=== PATIENT | male | born 1950 | race Caucasian/White ===

== ENCOUNTER 2017-09-07 08:02 | Day surgery (SDC) | payer MEDICARE, BC ==
[~2017-09-07 08:02] MED LIST: Lactated Ringers 1,000 ML IV SCH
--- NOTE | 2017-09-07 08:39 | PCM.PREANE ---
Preanesthetic Assessment - Anesthesia/Transfusion/Family Hx Anesthesia History: Prior Anesthesia Without Reaction Family History of Anesthesia Reaction: No Transfusion History: No Prior Transfusion(s) Intubation History: Unknown - Review of Systems General: No Symptoms Pulmonary: No Symptoms Cardiovascular: No Symptoms Gastrointestinal: No Symptoms, Other (screening colonoscopy) Neurological: No Symptoms Other: Reports: None - Physical Assessment O2 Sat by Pulse Oximetry: 97 Respiratory Rate: 16 Vital Signs: Last Vital Signs Temp 36.7 C 09/07/17 08:15 Pulse 72 09/07/17 08:15 Resp 16 09/07/17 08:15 BP 136/92 H 09/07/17 08:15 Pulse Ox 97 09/07/17 08:15 Height: 1.78 m Weight: 114.305 kg ASA Class: 2 Mental Status: Alert & Oriented x3 Airway Class: Mallampati = 2 Dentition: Reports: [place](s) (x4 upper front), Bridge (right upper (side)) Thyro-Mental Finger Breadths: 3 Mouth Opening Finger Breadths: 3 ROM/Head Extension: Full Lungs: Clear to Auscultation, Normal Respiratory Effort Cardiovascular: Regular Rate, Regular Rhythm - Allergies Allergies/Adverse Reactions: Allergies Allergy/AdvReac Type Severity Reaction Status Date / Time No Known Allergies Allergy Verified 09/04/17 08:36 - Blood Blood Available: No - Anesthesia Plan Pre-Op Medication Ordered: None - Acknowledgements Anesthesia Type Planned: MAC Pt an Appropriate Candidate for the Planned Anesthesia: Yes Alternatives and Risks of Anesthesia Discussed w Pt/Guardian: Yes Pt/Guardian Understands and Agrees with Anesthesia Plan: Yes PreAnesthesia Questionnaire HEENT History: Reports: Hard of Hearing, Impaired Vision, Other (See Below) Other HEENT History: wears glasses, has derek hearing aids Cardiovascular History: Reports: Heart Murmur, High Cholesterol, Hypertension Gastrointestinal History: Reports: Other (See Below) Other Gastrointestinal History: occasional heartburn Musculoskeletal History: Reports: Arthritis, Fracture Other Musculoskeletal History: orbital fx rt eye Neurological History: Reports: Head Trauma Endocrine/Metabolic History: Reports: Obesity/BMI 30+ - Past Surgical History Head Surgeries/Procedures: Reports: None HEENT Surgical History: Reports: Cataract Surgery, Eye Surgery, Naso-Sinus Surgery, Other (See Below) Other HEENT Surgeries/Procedures: eye surgery due to injury, has prostetic rt eye - SUBSTANCE USE Smoking Status *Q: Never Smoker Recreational Drug Use History: No - HOME MEDS Home Medications: Home Meds Aspirin [Ralls Aspirin] 81 mg PO DAILY 09/04/17 [History] Hydrochlorothiazide 25 mg PO DAILY 09/04/17 [History] Metoprolol Succinate 50 mg PO DAILY 09/04/17 [History] Multivitamin [Multivitamins] 1 tab PO DAILY 09/04/17 [History] [place]-3 Fatty Acids [[place]-3] 1,000 mg PO DAILY 09/04/17 [History] amLODIPine Besylate [Amlodipine Besylate] 5 mg PO DAILY 09/04/17 [History] atorvaSTATin Calcium [Atorvastatin Calcium] 10 mg PO DAILY 09/04/17 [History] - CURRENT (IN HOUSE) MEDS Current Meds: Current Medications Lactated Ringer's (Ringers, Lactated) 1,000 mls @ 125 mls/hr IV ASDIRECTED [facility] Last Admin: 09/07/17 08:19 Dose: 125 mls/hr
[2017-09-07] MEDS ORDERED: Midazolam 1 MG/ML 2 ML SDV ONE (08:48)
[2017-09-07] MEDS ORDERED: Propofol 200 MG/20 ML SDV ONE (08:48)
[2017-09-07] MEDS ORDERED: Lidocaine 2% 5 ML SDV ONE (08:48)
[2017-09-07] MEDS ORDERED: fentaNYL 100 MCG/2 ML SDV ONE (08:49)
--- NOTE | 2017-09-07 09:54 | PCM.OPNOTE ---
- General Post-Op/Procedure Note Date of Surgery/Procedure: 09/07/17 Operative Procedure(s): Colonoscopy Pre Op Diagnosis: Desire for colorectal cancer screening Post-Op Diagnosis: Sigmoid diverticulosis Anesthesia Technique: MAC (ASA II) Primary Surgeon: Agus Pérez Condition: Good Free Text/Narrative:: Dictation [id number] CPT CODE 63866
[2017-09-07] MEDS ORDERED: Lactated Ringers 1,000 ML IV SCH (10:00)
--- NOTE | 2017-09-07 10:32 | PCM48HPAN ---
Post Anesthesia Note - EVALUATION WITHIN 48HRS OF ANESTHETIC Vital Signs in Normal Range: Yes Patient Participated in Evaluation: Yes Respiratory Function Stable: Yes Airway Patent: Yes Cardiovascular Function Stable: Yes Hydration Status Stable: Yes Pain Control Satisfactory: Yes Nausea and Vomiting Control Satisfactory: Yes Mental Status Recovered: Yes Resp Rate: 22 - COMMENTS/OBSERVATIONS Free Text/Narrative:: no anesthesia problems
[2017-09-07 12:28] VITALS: BP 119/68
--- NOTE | 2017-09-11 11:48 | OR ---
SURGEON: Agus Pérez M.D. DATE OF PROCEDURE: 09/07/2017 OPERATION PERFORMED: Colonoscopy. ANESTHESIA: MAC. ASA CLASSIFICATION: II. PREOPERATIVE DIAGNOSIS: Desire for colorectal cancer screening. POSTOPERATIVE DIAGNOSIS: Sigmoid diverticulosis. DESCRIPTION OF PROCEDURE: The patient was taken to the endoscopy room, positioned on the endoscopy table in the left lateral decubitus position. Time-out was called for appropriate identification of the patient and the procedure. Monitored anesthesia care was provided. The colonoscope was inserted into the rectum and advanced with minimal difficulty to the cecum. The colonoscope was retroflexed in the cecum to visualize the ascending colon from below then straightened and slowly withdrawn. The cecum, ascending colon, hepatic flexure, transverse colon, splenic flexure, and descending colon showed no tumors, polyps, diverticula, or angiodysplastic changes. A few diverticula were noted in the sigmoid colon. No stricture, spasm, or bleeding was noted. Once the colonoscope was withdrawn to the rectum, it was retroflexed to visualize the anal orifice from above. No tumors or polyps were seen, and there were no acute hemorrhoidal changes. The colonoscope was then straightened, the rectum aspirated, and the colonoscope removed. The patient tolerated the procedure well and was taken to recovery room in stable condition. AMPARO / BRAYAN /[id number]
== END 2017-09-07 11:15 | disposition home or self-care (01) ==
LOC: MW.SDS 08:02
PROVIDERS: ATTEND Surgery
DX: Z12.11 Encounter for screening for malignant neoplasm of colon (principal); K57.30 Diverticulosis of large intestine without perforation or abscess without bleeding; I10 Essential (primary) hypertension; E78.00 Pure hypercholesterolemia, unspecified; Z79.82 Long term (current) use of aspirin; Z79.899 Other long term (current) drug therapy
CPT/HCPCS: G0121; J2250; J3010; J7120; 00812; J2704

== ENCOUNTER 2019-09-03 09:23 | Observation (INO) | payer MEDICARE, BC ==
[2019-09-03] MEDS ORDERED: Aspirin 81 MG Tab.Chew PO ONE (10:14)
--- NOTE | 2019-09-03 10:17 | EDM.PDOC ---
ED HPI GENERAL MEDICAL PROBLEM - General Chief Complaint: Chest Pain Stated Complaint: CHEST PAIN Time Seen by Provider: 09/03/19 10:08 Source of Information: Reports: Patient History Limitations: Reports: No Limitations - History of Present Illness INITIAL COMMENTS - FREE TEXT/NARRATIVE: HISTORY AND PHYSICAL: History of present illness: Patient is a 69-year-old male who presents to the emergency room today with complaints of left anterior chest pain. He states he noticed on Sunday night he was having sharp stabbing pain to the left mid axillary chest wall. Sunday the pain started to his chest which worsened today. He states he had to take Tylenol last evening as the pain was keeping him awake. He states nothing makes the pain better or worse. States the pain is intermittent, lasting anywhere from a few seconds to a few minutes at a time. Patient denies any fever, chills, headache, change in vision, syncope or near syncope. Denies any back pain, shortness of breath or cough. Denies any abdominal pain, nausea, vomiting, diarrhea, constipation or dysuria. Has not noted any blood in urine or stool. Patient has been eating and drinking appropriately. Patient has a past medical history of heart murmur and hypertension. Review of systems: As per history of present illness and below otherwise all systems reviewed and negative. Past medical history: As per history of present illness and as reviewed below otherwise noncontributory. Surgical history: As per history of present illness and as reviewed below otherwise noncontributory. Social history: See social history for further information Family history: As per history of present illness and as reviewed below otherwise noncontributory. Physical exam: General: Well-developed and well-nourished 69-year-old male. Alert and oriented. Nontoxic-appearing and in no acute distress. HEENT: Atraumatic, normocephalic, pupils equal and reactive bilaterally, negative for conjunctival pallor or scleral icterus, mucous membranes moist, TMs normal bilaterally, throat clear, neck supple, nontender, trachea midline. No drooling or trismus noted. No meningeal signs. No hot potato voice noted. Lungs: Clear to auscultation, breath sounds equal bilaterally, chest nontender. Heart: S1S2, regular rate and rhythm, obvious murmur noted Abdomen: Soft, nondistended, nontender. Negative for masses or hepatosplenomegaly. Negative for costovertebral tenderness. Skin: Intact, warm, dry. No lesions or rashes noted. Extremities: Atraumatic, moves all extremities per self without difficulty or deficits, negative for cords or calf pain. Neurovascular unremarkable. Neuro: Awake, alert, oriented. Cranial nerves II through XII unremarkable. Cerebellum unremarkable. Motor and sensory unremarkable throughout. Exam nonfocal. Notes: Lab work is unremarkable. Patient states he is currently pain free. Due to heart score admission was offered.Dr Lopes, hospitalist was consulted on this patient and is agreeable to observe for further care and management. Patient aware and agreeable to plan of care. Diagnostics: CBC, CMP, troponin, EKG, 1 view chest, [employer]: SL aspirin Impression: Chest pain, r/o ND Plan: Observation admission with telemetry Definitive disposition and diagnosis as appropriate pending reevaluation and review of above. Left Rib Pain Score (Numeric/FACES): 3 - Related Data Allergies Allergy/AdvReac Type Severity Reaction Status Date / Time No Known Allergies Allergy Verified 09/03/19 12:27 Home Meds: Home Meds Metoprolol Succinate 50 mg PO DAILY 09/04/17 [History] amLODIPine Besylate [Amlodipine Besylate] 5 mg PO DAILY 09/04/17 [History] atorvaSTATin Calcium [Atorvastatin Calcium] 10 mg PO DAILY 09/04/17 [History] hydroCHLOROthiazide [Hydrochlorothiazide] 25 mg PO DAILY 09/04/17 [History] Past Medical History HEENT History: Reports: Hard of Hearing, Impaired Vision, Other (See Below) Other HEENT History: wears glasses, has derek hearing aids Cardiovascular History: Reports: Heart Murmur, High Cholesterol, Hypertension Gastrointestinal History: Reports: Other (See Below) Other Gastrointestinal History: occasional heartburn Musculoskeletal History: Reports: Arthritis, Fracture Other Musculoskeletal History: orbital fx rt eye Neurological History: Reports: Head Trauma Endocrine/Metabolic History: Reports: Obesity/BMI 30+ - Past Surgical History Head Surgeries/Procedures: Reports: None HEENT Surgical History: Reports: Cataract Surgery, Eye Surgery, Naso-Sinus Surgery, Other (See Below) Other HEENT Surgeries/Procedures: eye surgery due to injury, has prostetic rt eye Social & Family History - Tobacco Use Smoking Status *Q: Never Smoker Second Hand Smoke Exposure: No - Caffeine Use Caffeine Use: Reports: Coffee - Recreational Drug Use Recreational Drug Use: No ED ROS GENERAL - Review of Systems Review Of Systems: Comprehensive ROS is negative, except as noted in HPI. ED EXAM, GENERAL - Physical Exam Exam: See Below (See dictation) Course - Vital Signs Last Recorded V/S: Last Vital Signs Temp 97.1 F 09/03/19 19:35 Pulse 82 09/03/19 19:35 Resp 17 09/03/19 19:35 BP 156/75 H 09/03/19 19:35 Pulse Ox 96 09/03/19 19:35 - Orders/Labs/Meds Orders: Active Orders 24 hr Category Date Time Status EKG 12 Lead [EKG Documentation Completion] [RC] STAT Care 09/03/19 09:51 Active Medication Orders Acetaminophen (Tylenol) 650 mg PO Q4H PRN PRN Reason: Pain (mild 1-3) Amlodipine Besylate (Norvasc) 5 mg PO DAILY [facility] Last Admin: 09/03/19 13:05 Dose: 5 mg Aspirin (Aspirin) 81 mg PO DAILY [facility] Atorvastatin Calcium (Lipitor) 10 mg PO DAILY [facility] Hydrochlorothiazide (Hydrochlorothiazide) 25 mg PO DAILY [facility] Last Admin: 09/03/19 13:05 Dose: 25 mg Metoprolol Succinate (Toprol Xl) 50 mg PO DAILY [facility] Last Admin: 09/03/19 13:05 Dose: 50 mg Morphine Sulfate (Morphine) 2 mg IVPUSH Q4H PRN PRN Reason: Pain (severe 7-10) Stop: 09/04/19 12:28 Ondansetron HCl (Zofran) 4 mg IVPUSH Q4H PRN PRN Reason: Nausea Sodium Chloride (Saline Flush) 2.5 ml FLUSH ASDIRECTED PRN PRN Reason: Keep Vein Open Labs: Laboratory Tests 09/03/19 09/03/19 09/03/19 Range/Units 10:35 10:35 10:35 WBC 10.99 (4.0-11.0) K/uL RBC 5.60 (4.50-5.90) M/uL Hgb 15.4 (13.0-17.0) g/dL Hct 45.8 (38.0-50.0) % MCV 81.8 (80.0-98.0) fL MCH 27.5 (27.0-32.0) pg MCHC 33.6 (31.0-37.0) g/dL RDW Std Deviation 47.5 (28.0-62.0) fl RDW Coeff of Pradeep 16 H (11.0-15.0) % Plt Count 170 (150-400) K/uL MPV 10.60 (7.40-12.00) fL Neut % (Auto) 73.3 (48.0-80.0) % Lymph % (Auto) 15.5 L (16.0-40.0) % Sutter % (Auto) 10.3 (0.0-15.0) % Eos % (Auto) 0.6 (0.0-7.0) % Baso % (Auto) 0.3 (0.0-1.5) % Neut # (Auto) 8.1 H (1.4-5.7) K/uL Lymph # (Auto) 1.7 (0.6-2.4) K/uL [place] # (Auto) 1.1 H (0.0-0.8) K/uL Eos # (Auto) 0.1 (0.0-0.7) K/uL Baso # (Auto) 0.0 (0.0-0.1) K/uL Nucleated RBC % 0.0 /100WBC Nucleated RBCs # 0 K/uL D-Dimer, Quantitative 0.47 (0.0-0.50) mg/L FEU Sodium 141 (136-148) mmol/L Potassium 4.1 (3.5-5.1) mmol/L Chloride 103 (98-107) mmol/L Carbon Dioxide 30.5 (21.0-32.0) mmol/L BUN 19 H (7.0-18.0) mg/dL Creatinine 1.1 (0.8-1.3) mg/dL Est Cr Clr Drug Dosing 63.60 mL/min Estimated GFR (MDRD) > 60.0 ml/min Glucose 127 H (74-106) mg/dL Hemoglobin A1c (4.5-6.2) % Calcium 9.2 (8.5-10.1) mg/dL Total Bilirubin 1.1 H (0.2-1.0) mg/dL AST 12 L (15-37) IU/L ALT 22 (14-63) IU/L Alkaline Phosphatase 70 (46-116) U/L Troponin I < 0.050 (0.000-0.056) ng/mL Total Protein 8.2 (6.4-8.2) g/dL Albumin 3.6 (3.4-5.0) g/dL Globulin 4.6 H (2.6-4.0) g/dL Albumin/Globulin Ratio 0.8 L (0.9-1.6) Triglycerides (0-200) mg/dL Cholesterol (50-200) mg/dL LDL Cholesterol, Calc (60-180) mg/dL VLDL Cholesterol (5-55) mg/dL HDL Cholesterol (40-60) mg/dL Cholesterol/HDL Ratio (3.3-6.0) 09/03/19 09/03/19 Range/Units 10:35 10:35 WBC (4.0-11.0) K/uL RBC (4.50-5.90) M/uL Hgb (13.0-17.0) g/dL Hct (38.0-50.0) % MCV (80.0-98.0) fL MCH (27.0-32.0) pg MCHC (31.0-37.0) g/dL RDW Std Deviation (28.0-62.0) fl RDW Coeff of Pradeep (11.0-15.0) % Plt Count (150-400) K/uL MPV (7.40-12.00) fL Neut % (Auto) (48.0-80.0) % Lymph % (Auto) (16.0-40.0) % [place] % (Auto) (0.0-15.0) % Eos % (Auto) (0.0-7.0) % Baso % (Auto) (0.0-1.5) % Neut # (Auto) (1.4-5.7) K/uL Lymph # (Auto) (0.6-2.4) K/uL [place]utter # (Auto) (0.0-0.8) K/uL Eos # (Auto) (0.0-0.7) K/uL Baso # (Auto) (0.0-0.1) K/uL Nucleated RBC % /100WBC Nucleated RBCs # K/uL D-Dimer, Quantitative (0.0-0.50) mg/L FEU Sodium (136-148) mmol/L Potassium (3.5-5.1) mmol/L Chloride (98-107) mmol/L Carbon Dioxide (21.0-32.0) mmol/L BUN (7.0-18.0) mg/dL Creatinine (0.8-1.3) mg/dL Est Cr Clr Drug Dosing mL/min Estimated GFR (MDRD) ml/min Glucose (74-106) mg/dL Hemoglobin A1c 5.9 (4.5-6.2) % Calcium (8.5-10.1) mg/dL Total Bilirubin (0.2-1.0) mg/dL AST (15-37) IU/L ALT (14-63) IU/L Alkaline Phosphatase (46-116) U/L Troponin I (0.000-0.056) ng/mL Total Protein (6.4-8.2) g/dL Albumin (3.4-5.0) g/dL Globulin (2.6-4.0) g/dL Albumin/Globulin Ratio (0.9-1.6) Triglycerides 80 (0-200) mg/dL Cholesterol 174 (50-200) mg/dL LDL Cholesterol, Calc 104 (60-180) mg/dL VLDL Cholesterol 16 (5-55) mg/dL HDL Cholesterol 54 (40-60) mg/dL Cholesterol/HDL Ratio 3.2 L (3.3-6.0) Meds: Medications Generic Name Dose Route Start Last Admin Trade Name Freq PRN Reason Stop Dose Admin Acetaminophen 650 mg 09/03/19 12:26 Tylenol PO Q4H PRN Pain (mild 1-3) Amlodipine Besylate 5 mg 09/03/19 12:30 09/03/19 13:05 Norvasc PO 5 mg DAILY [facility] Administration Aspirin 81 mg 09/04/19 09:00 Aspirin PO DAILY [facility] Atorvastatin Calcium 10 mg 09/04/19 09:00 Lipitor PO DAILY [facility] Hydrochlorothiazide 25 mg 09/03/19 12:30 09/03/19 13:05 Hydrochlorothiazide PO 25 mg DAILY [facility] Administration Metoprolol Succinate 50 mg 09/03/19 12:30 09/03/19 13:05 Toprol Xl PO 50 mg DAILY [facility] Administration Morphine Sulfate 2 mg 09/03/19 12:26 Morphine IVPUSH 09/04/19 12:28 Q4H PRN Pain (severe 7-10) Ondansetron HCl 4 mg 09/03/19 12:26 Zofran IVPUSH Q4H PRN Nausea Sodium Chloride 2.5 ml 09/03/19 12:26 Saline Flush FLUSH ASDIRECTED PRN Keep Vein Open Discontinued Medications Generic Name Dose Route Start Last Admin Trade Name Freq PRN Reason Stop Dose Admin Aspirin 324 mg 09/03/19 10:14 09/03/19 10:44 Aspirin PO 09/03/19 10:15 324 mg ONETIME ONE Administration Departure - Departure Time of Disposition: 20:50 Disposition: Refer to Observation Clinical Impression: Chest pain Qualifiers: Chest pain type: unspecified Qualified Code(s): R07.9 - Chest pain, unspecified Sepsis Event Note - Evaluation Sepsis Screening Result: No Definite Risk - Focused Exam Vital Signs: Vital Signs Temp Pulse Resp BP Pulse Ox 09/03/19 11:30 87 18 176/102 H 99 09/03/19 10:45 87 18 151/88 H 96 09/03/19 09:41 97.1 F 98 16 145/95 H 93 L Date Exam was Performed: 09/03/19 Time Exam was Performed: 20:49
--- NOTE | 2019-09-03 11:18 | CR ---
Chest: Portable view of the chest was obtained. Comparison: No previous chest x-ray is available. Heart size and mediastinum are normal. Lungs are clear with no acute parenchymal change. Degenerative change is scattered within the spine as well as within both acromioclavicular joints. There is ossification within both coracoclavicular ligaments. Impression: 1. Findings believed to be incidental as described above. 2. Nothing acute is appreciated on portable chest x-ray. Diagnostic code #2 This report was dictated in [place] Standard Time
[2019-09-03 11:20] LABS: BLOOD UREA NITROGEN,BUN 19 mg/dL (7.0-18.0); CARBON DIOXIDE,CO2 30.5 mmol/L (21.0-32.0); CHLORIDE,CL 103 mmol/L (98-107); GLUCOSE RANDOM 127 mg/dL (74-106); POTASSIUM,K 4.1 mmol/L (3.5-5.1); SODIUM,NA 141 mmol/L (136-148)
[2019-09-03] MEDS ORDERED: Morphine 2 MG/ML Syringe IVPUSH PRN (12:26)
[2019-09-03] MEDS ORDERED: Ondansetron 4 MG/2 ML SDV IVPUSH PRN (12:26)
[2019-09-03] MEDS ORDERED: Acetaminophen 325 MG Tab PO PRN (12:26)
[2019-09-03] MEDS ORDERED: Sodium Chloride 0.9% 2.5 ML Syringe FLUSH PRN (12:26)
[2019-09-03] MEDS ORDERED: amLODIPine 5 MG Tab PO SCH (12:30)
--- NOTE | 2019-09-03 12:48 | PCM.HP.2 ---
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 He reports the pain initially started in his L mid axilla region which was dull in nature with intermittent stabbing sensation. No associated symptoms. Then last night the pain moved to anterior L chest/Pec region. He again denies associated SOB or diaphoresis. Nothing makes the pain worse and Tylenol helped the pain last evening, but pain returned when it wore off. He reports he had some generalized aches and pains a week ago, which had passed. No fevers or chills no abdominal pain or urinary concerns. No focal neurological deficits. He does not use tobacco, social alcohol use, and no recreational drug use. In the ED labwork WNL. Glucose 121. Bilirubin 1.1 Troponin negative. EKG SR with no ST segment changes. CXR negative. He was given ASA 324 in the ED. He reports pain is 3/10 still. He will be admitted for atypical chest pain, rule out ACS. Left Rib Pain Score (Numeric/FACES): 3 - Related Data Allergies/Adverse Reactions: Allergies Allergy/AdvReac Type Severity Reaction Status Date / Time No Known Allergies Allergy Verified 09/03/19 12:27 Home Medications: Home Meds Metoprolol Succinate 50 mg PO DAILY 09/04/17 [History] amLODIPine Besylate [Amlodipine Besylate] 5 mg PO DAILY 09/04/17 [History] atorvaSTATin Calcium [Atorvastatin Calcium] 10 mg PO DAILY 09/04/17 [History] hydroCHLOROthiazide [Hydrochlorothiazide] 25 mg PO DAILY 09/04/17 [History] Past Medical History HEENT History: Reports: Hard of Hearing, Impaired Vision, Other (See Below) Other HEENT History: wears glasses, has derek hearing aids Cardiovascular History: Reports: Heart Murmur, High Cholesterol, Hypertension. Denies: Afib, Blood Clots/VTE/DVT, CAD, NM, Stents Gastrointestinal History: Reports: Other (See Below) Other Gastrointestinal History: occasional heartburn Musculoskeletal History: Reports: Arthritis, Fracture Other Musculoskeletal History: orbital fx rt eye Neurological History: Reports: Head Trauma Endocrine/Metabolic History: Reports: Obesity/BMI 30+ - Past Surgical History Head Surgeries/Procedures: Reports: None HEENT Surgical History: Reports: Cataract Surgery, Eye Surgery, Naso-Sinus Surgery, Other (See Below) Other HEENT Surgeries/Procedures: eye surgery due to injury, has prostetic rt eye Social & Family History - Tobacco Use Smoking Status *Q: Never Smoker Second Hand Smoke Exposure: No - Caffeine Use Caffeine Use: Reports: Coffee - Alcohol Use Days Per Week of Alcohol Use: 2 Number of Drinks Per Day: 4 Total Drinks Per Week: 8 - Recreational Drug Use Recreational Drug Use: No H&P Review of Systems - Review of Systems: Review Of Systems: See Below General: Reports: No Symptoms. Denies: Fever, Chills, Malaise HEENT: Reports: No Symptoms. Denies: Headaches, Sinus Congestion, Sore Throat Pulmonary: Denies: Shortness of Breath, Cough Cardiovascular: Reports: Chest Pain (L lateral and L anterior). Denies: Edema Gastrointestinal: Reports: No Symptoms. Denies: Abdominal Pain, Black Stool, Bloody Stool, Nausea, Vomiting Genitourinary: Reports: No Symptoms. Denies: Dysuria, Frequency, Burning Skin: Reports: No Symptoms Neurological: Reports: No Symptoms Hematologic/Lymphatic: Reports: No Symptoms Immunologic: Reports: No Symptoms Exam - Exam Exam: See Below - Vital Signs Vital Signs: Last Vital Signs Temp 97.7 F 09/03/19 12:13 Pulse 88 09/03/19 12:15 Resp 18 09/03/19 12:15 BP 167/93 H 09/03/19 12:15 Pulse Ox 96 09/03/19 12:15 Weight: 115.122 kg - Exam HEENT: Other ([place], R artifical eye. ) Neck: Supple, Full Range of Motion. No: JVD Lungs: Normal Respiratory Effort, Crackles (fine crackles L base) Cardiovascular: Regular Rate, Regular Rhythm, Systolic Murmur GI/Abdominal Exam: Normal Bowel Sounds, Soft, Non-Tender, Guarding Extremities: Normal Inspection, Normal Range of Motion, No Pedal Edema Neuro Extensive - Mental Status: Alert, Oriented x3 Neuro Extensive - Motor, Sensory, Reflexes: CN II-XII Intact Psychiatric: Alert, Normal Affect, Normal Mood - Patient Data Lab Results Last 24 hrs: Laboratory Results - last 24 hr 09/03/19 09/03/19 09/03/19 Range/Units 10:35 10:35 10:35 WBC 10.99 (4.0-11.0) K/uL RBC 5.60 (4.50-5.90) M/uL Hgb 15.4 (13.0-17.0) g/dL Hct 45.8 (38.0-50.0) % MCV 81.8 (80.0-98.0) fL MCH 27.5 (27.0-32.0) pg MCHC 33.6 (31.0-37.0) g/dL RDW Std Deviation 47.5 (28.0-62.0) fl RDW Coeff of Pradeep 16 H (11.0-15.0) % Plt Count 170 (150-400) K/uL MPV 10.60 (7.40-12.00) fL Neut % (Auto) 73.3 (48.0-80.0) % Lymph % (Auto) 15.5 L (16.0-40.0) % [place] % (Auto) 10.3 (0.0-15.0) % Eos % (Auto) 0.6 (0.0-7.0) % Baso % (Auto) 0.3 (0.0-1.5) % Neut # (Auto) 8.1 H (1.4-5.7) K/uL Lymph # (Auto) 1.7 (0.6-2.4) K/uL [place] # (Auto) 1.1 H (0.0-0.8) K/uL Eos # (Auto) 0.1 (0.0-0.7) K/uL Baso # (Auto) 0.0 (0.0-0.1) K/uL Nucleated RBC % 0.0 /100WBC Nucleated RBCs # 0 K/uL D-Dimer, Quantitative 0.47 (0.0-0.50) mg/L FEU Sodium 141 (136-148) mmol/L Potassium 4.1 (3.5-5.1) mmol/L Chloride 103 (98-107) mmol/L Carbon Dioxide 30.5 (21.0-32.0) mmol/L BUN 19 H (7.0-18.0) mg/dL Creatinine 1.1 (0.8-1.3) mg/dL Est Cr Clr Drug Dosing 63.60 mL/min Estimated GFR (MDRD) > 60.0 ml/min Glucose 127 H (74-106) mg/dL Calcium 9.2 (8.5-10.1) mg/dL Total Bilirubin 1.1 H (0.2-1.0) mg/dL AST 12 L (15-37) IU/L ALT 22 (14-63) IU/L Alkaline Phosphatase 70 (46-116) U/L Troponin I < 0.050 (0.000-0.056) ng/mL Total Protein 8.2 (6.4-8.2) g/dL Albumin 3.6 (3.4-5.0) g/dL Globulin 4.6 H (2.6-4.0) g/dL Albumin/Globulin Ratio 0.8 L (0.9-1.6) Result Diagrams: 09/03/19 10:35 09/03/19 10:35 EKG INTERPRETATION EKG Date: 09/03/19 Rhythm: NSR Rate (Beats/Min): 90 P-Wave: Present QRS: Normal ST-T: Normal QT: Normal Sepsis Event Note - Evaluation Sepsis Screening Result: No Definite Risk - Focused Exam Vital Signs: Vital Signs Temp Pulse Resp BP Pulse Ox 09/03/19 12:15 88 18 167/93 H 96 09/03/19 12:13 97.7 F 86 18 163/97 H 95 09/03/19 11:30 87 18 176/102 H 99 09/03/19 10:45 87 18 151/88 H 96 09/03/19 09:41 97.1 F 98 16 145/95 H 93 L Date Exam was Performed: 09/03/19 Time Exam was Performed: 13:40 - Problem List (1) Atypical chest pain SNOMED Code(s): 758290421 ICD Code: R07.89 - OTHER CHEST PAIN Status: Acute Current Visit: Yes (2) HTN (hypertension) SNOMED Code(s): 27820581 ICD Code: I10 - ESSENTIAL (PRIMARY) HYPERTENSION Status: Chronic Current Visit: Yes Qualifiers: Hypertension type: essential hypertension Qualified Code(s): I10 - Essential (primary) hypertension (3) HLD (hyperlipidemia) SNOMED Code(s): 47673306 ICD Code: E78.5 - HYPERLIPIDEMIA, UNSPECIFIED Status: Chronic Current Visit: Yes (4) Cardiac murmur SNOMED Code(s): 16408567 ICD Code: R01.1 - CARDIAC MURMUR, UNSPECIFIED Status: Chronic Current Visit: Yes Problem List Initiated/Reviewed/Updated: Yes Orders Last 24hrs: Active Orders 24 hr Category Date Time Status Admission Status [Patient Status] [ADT] Stat ADT 09/03/19 11:32 Active Antiembolic Devices [RC] PER UNIT ROUTINE Care 09/03/19 12:27 Ordered EKG 12 Lead [EKG Documentation Completion] [RC] STAT Care 09/03/19 09:51 Active Intake and Output [RC] QSHIFT Care 09/03/19 12:27 Ordered Oxygen Therapy [RC] PRN Care 09/03/19 12:26 Ordered Telemetry Monitoring [Cardiac Monitoring] [RC] . Care 09/03/19 12:25 Ordered DIRECTED Up ad Elvira [RC] ASDIRECTED Care 09/03/19 12:26 Ordered VTE/DVT Education [RC] PER UNIT ROUTINE Care 09/03/19 12:26 Ordered Vital Signs [RC] Q4H Care 09/03/19 12:26 Ordered Heart Healthy Diet [DIET] Diet 09/03/19 Lunch Ordered GLYCOSYLATED HEMOGLOBIN,HGBA1C [CHEM] Routine Lab 09/03/19 12:31 Ordered LIPID PANEL [CHEM] Routine Lab 09/03/19 12:31 Ordered TROPONIN I [CHEM] Q3H Lab 09/03/19 13:30 Ordered TROPONIN I [CHEM] Q3H Lab 09/03/19 16:30 Ordered Acetaminophen [Tylenol] Med 09/03/19 12:26 Ordered 650 mg PO Q4H PRN Metoprolol Succinate [Toprol XL] Med 09/03/19 12:30 Ordered 50 mg PO DAILY Morphine Med 09/03/19 12:26 Ordered 2 mg IVPUSH Q4H PRN Ondansetron [Zofran] Med 09/03/19 12:26 Ordered 4 mg IVPUSH Q4H PRN Sodium Chloride 0.9% [Saline Flush] Med 09/03/19 12:26 Ordered 2.5 ml FLUSH ASDIRECTED PRN amLODIPine [Norvasc] Med 09/03/19 12:30 Ordered 5 mg PO DAILY atorvaSTATin [Lipitor] Med 09/04/19 09:00 Ordered 10 mg PO DAILY hydroCHLOROthiazide Med 09/03/19 12:30 Ordered 25 mg PO DAILY Saline Lock Insert [OM.PC] Routine Oth 09/03/19 12:26 Ordered Sequential Compression Device [OM.PC] Per Unit Routine Oth 09/03/19 12:27 Ordered Resuscitation Status Routine Resus Stat 09/03/19 12:26 Ordered Medication Orders Acetaminophen (Tylenol) 650 mg PO Q4H PRN PRN Reason: Pain (mild 1-3) Amlodipine Besylate (Norvasc) 5 mg PO DAILY [facility] Atorvastatin Calcium (Lipitor) 10 mg PO DAILY [facility] Hydrochlorothiazide (Hydrochlorothiazide) 25 mg PO DAILY [facility] Metoprolol Succinate (Toprol Xl) 50 mg PO DAILY [facility] Morphine Sulfate (Morphine) 2 mg IVPUSH Q4H PRN PRN Reason: Pain (severe 7-10) Stop: 09/04/19 12:28 Ondansetron HCl (Zofran) 4 mg IVPUSH Q4H PRN PRN Reason: Nausea Sodium Chloride (Saline Flush) 2.5 ml FLUSH ASDIRECTED PRN PRN Reason: Keep Vein Open Assessment/Plan Comment:: This 69 year old male admitted with atypical chest pain rule out ACS 1. Atypical chest pain: - Trend troponins, monitor on telemetry - Obtain A1c and lipid panel - Obtain ECHo due to murmur and new chest pain - Elevated BP in ED, restart home medications of Amlodipine, Metoprolol and Lisinopril - Continue ASA daily VTE prophylaxis: SCDs Dispo: 1 day Code statue: FULL CODE - Mortality Measure Prognosis:: Good
[2019-09-03] MEDS: Hydrochlorothiazide 25 MG Tab PO SCH (13:05)
[2019-09-03] MEDS: Metoprolol Succinate 50 MG Tab.ER PO SCH (13:05)
[2019-09-03 13:21] LABS: HEMOGLOBIN A1C 5.9 % (4.5-6.2)
[2019-09-03] MEDS ORDERED: amLODIPine 5 MG Tab PO ONE (21:38)
[2019-09-03] MEDS ORDERED: Ketorolac 30 MG/ML SDV IVPUSH ONE (22:58)
[2019-09-03] MEDS ORDERED: Calcium Carbonate 500 MG Tab.Chew PO ONE (23:01)
[2019-09-04] MEDS ORDERED: Aspirin 81 MG Tab.Chew PO SCH (09:00)
[2019-09-04] MEDS ORDERED: atorvaSTATin 10 MG Tab PO SCH (09:00)
[2019-09-04] MEDS ORDERED: amLODIPine 5 MG Tab PO SCH (09:00)
[2019-09-04] MEDS: Hydrochlorothiazide 25 MG Tab PO SCH (09:20)
[2019-09-04] MEDS: Metoprolol Succinate 50 MG Tab.ER PO SCH (09:21)
--- NOTE | 2019-09-04 09:32 | PCM.DCSUM1 ---
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 He reports the pain initially started in his L mid axilla region which was dull in nature with intermittent stabbing sensation. No associated symptoms. Then last night the pain moved to anterior L chest/Pec region. He again denies associated SOB or diaphoresis. Nothing makes the pain worse and Tylenol helped the pain last evening, but pain returned when it wore off. He reports he had some generalized aches and pains a week ago, which had passed. No fevers or chills no abdominal pain or urinary concerns. No focal neurological deficits. He does not use tobacco, social alcohol use, and no recreational drug use. In the ED labwork WNL. Glucose 121. Bilirubin 1.1 Troponin negative. EKG SR with no ST segment changes. CXR negative. He was given ASA 324 in the ED. He reports pain is 3/10 still. He will be admitted for atypical chest pain, rule out ACS. Diagnosis: Stroke: No - Discharge Data Discharge Date: 09/04/19 Discharge Disposition: Home, Self-Care 01 Condition: Stable - Referral to Home Health Primary Care Physician: Shun Mendes MD - Discharge Diagnosis/Problem(s) (1) Atypical chest pain SNOMED Code(s): 280847177 ICD Code: R07.89 - OTHER CHEST PAIN Status: Acute Current Visit: Yes (2) HTN (hypertension) SNOMED Code(s): 17231357 ICD Code: I10 - ESSENTIAL (PRIMARY) HYPERTENSION Status: Chronic Current Visit: Yes Qualifiers: Hypertension type: essential hypertension Qualified Code(s): I10 - Essential (primary) hypertension (3) HLD (hyperlipidemia) SNOMED Code(s): 61510405 ICD Code: E78.5 - HYPERLIPIDEMIA, UNSPECIFIED Status: Chronic Current Visit: Yes (4) Cardiac murmur SNOMED Code(s): 92509122 ICD Code: R01.1 - CARDIAC MURMUR, UNSPECIFIED Status: Chronic Current Visit: Yes - Patient Instructions Diet: Heart Healthy Diet Activity: No Strenuous Activities Driving: May Drive Today Showering/Bathing: May Shower Notify Provider of: Fever, Increased Pain, Swelling and Redness, Drainage, Nausea and/or Vomiting Other/Special Instructions: Monitor blood pressure at home due to increased dose of amlodipine. Keep log and bring to Dr Mendes follow up with monitor improvement or need for further dose adjustments. - Discharge Plan *PRESCRIPTION DRUG MONITORING PROGRAM REVIEWED*: Not Applicable *COPY OF PRESCRIPTION DRUG MONITORING REPORT IN PATIENT SUSAN: Not Applicable Prescriptions/Med Rec: Ibuprofen [Ibuprofen Ib] 400 mg PO Q8HR PRN #30 tablet PRN Reason: Pain amLODIPine Besylate [Amlodipine Besylate] 10 mg PO DAILY #30 tablet Home Medications: Home Meds Metoprolol Succinate 50 mg PO DAILY 09/04/17 [History] atorvaSTATin Calcium [Atorvastatin Calcium] 10 mg PO DAILY 09/04/17 [History] hydroCHLOROthiazide [Hydrochlorothiazide] 25 mg PO DAILY 09/04/17 [History] Aspirin 81 mg PO DAILY tab.chew 09/04/19 [Rx] Ibuprofen [Ibuprofen Ib] 400 mg PO Q8HR PRN #30 tablet 09/04/19 [Rx] amLODIPine Besylate [Amlodipine Besylate] 10 mg PO DAILY #30 tablet 09/04/19 [Rx ] Oxygen Therapy Mode: Room Air Patient Handouts: Exercise Stress Test, [id number], Ibuprofen tablets and capsules, Nonspecific Chest Pain, [id number], Amlodipine tablets Referrals: [facility] [Outside] Shun Mendes MD [Primary Care Provider] - 09/12/19 10:00 am (Arrive 15 minutes early with photo ID and insurance card. ) - Discharge Summary/Plan Comment DC Time >30 min.: No Discharge Summary/Plan Comment: Admitting Diagnoses: Atypical Chest pain Discharge Diagnoses: Atypical ches tpain- likely MSK related Other PMH: HTN HLD Discharge Plan: Tomas was admitted monitored on telemetry. Mild L chest pain noted, but reproducible with palpation to L pec and axilla. Likely MSK related. Toradol helped pain. Troponins negative. ACS ruled out. BP was elevated, Amlodipine dose increased to 10 mg daily, and BP improved. He was counseled to monitor BP at home and follow with PCP for further management. ECHo returns today with LVH noted, EF 60-65%, mild aortic sclerosis with stenosis. He is to return for stress test as scheduled. He is to return to ED or clinic if concerns were to arise. - Patient Data Vitals - Most Recent: Last Vital Signs Temp 97.7 F 09/04/19 07:20 Pulse 78 09/04/19 09:21 Resp 17 09/04/19 07:20 BP 163/96 H 09/04/19 09:21 Pulse Ox 95 09/04/19 07:20 Weight - Most Recent: 115.122 kg I&O - Last 24 hours: Intake & Output 09/03/19 09/04/19 09/04/19 22:59 06:59 14:59 Intake Total 300 800 Output Total 0 400 Balance 300 400 Lab Results - Last 24 hrs: Laboratory Results - last 24 hr 09/03/19 09/03/19 09/03/19 Range/Units 10:35 10:35 10:35 WBC 10.99 (4.0-11.0) K/uL RBC 5.60 (4.50-5.90) M/uL Hgb 15.4 (13.0-17.0) g/dL Hct 45.8 (38.0-50.0) % MCV 81.8 (80.0-98.0) fL MCH 27.5 (27.0-32.0) pg MCHC 33.6 (31.0-37.0) g/dL RDW Std Deviation 47.5 (28.0-62.0) fl RDW Coeff of Pradeep 16 H (11.0-15.0) % Plt Count 170 (150-400) K/uL MPV 10.60 (7.40-12.00) fL Neut % (Auto) 73.3 (48.0-80.0) % Lymph % (Auto) 15.5 L (16.0-40.0) % [place] % (Auto) 10.3 (0.0-15.0) % Eos % (Auto) 0.6 (0.0-7.0) % Baso % (Auto) 0.3 (0.0-1.5) % Neut # (Auto) 8.1 H (1.4-5.7) K/uL Lymph # (Auto) 1.7 (0.6-2.4) K/uL [place] # (Auto) 1.1 H (0.0-0.8) K/uL Eos # (Auto) 0.1 (0.0-0.7) K/uL Baso # (Auto) 0.0 (0.0-0.1) K/uL Nucleated RBC % 0.0 /100WBC Nucleated RBCs # 0 K/uL D-Dimer, Quantitative 0.47 (0.0-0.50) mg/L FEU Sodium 141 (136-148) mmol/L Potassium 4.1 (3.5-5.1) mmol/L Chloride 103 (98-107) mmol/L Carbon Dioxide 30.5 (21.0-32.0) mmol/L BUN 19 H (7.0-18.0) mg/dL Creatinine 1.1 (0.8-1.3) mg/dL Est Cr Clr Drug Dosing 63.60 mL/min Estimated GFR (MDRD) > 60.0 ml/min Glucose 127 H (74-106) mg/dL Hemoglobin A1c (4.5-6.2) % Calcium 9.2 (8.5-10.1) mg/dL Phosphorus (2.6-4.7) mg/dL Magnesium (1.8-2.4) mg/dL Total Bilirubin 1.1 H (0.2-1.0) mg/dL AST 12 L (15-37) IU/L ALT 22 (14-63) IU/L Alkaline Phosphatase 70 (46-116) U/L Troponin I < 0.050 (0.000-0.056) ng/mL Total Protein 8.2 (6.4-8.2) g/dL Albumin 3.6 (3.4-5.0) g/dL Globulin 4.6 H (2.6-4.0) g/dL Albumin/Globulin Ratio 0.8 L (0.9-1.6) Triglycerides (0-200) mg/dL Cholesterol (50-200) mg/dL LDL Cholesterol, Calc (60-180) mg/dL VLDL Cholesterol (5-55) mg/dL HDL Cholesterol (40-60) mg/dL Cholesterol/HDL Ratio (3.3-6.0) 09/03/19 09/03/19 09/03/19 Range/Units 10:35 10:35 14:13 WBC (4.0-11.0) K/uL RBC (4.50-5.90) M/uL Hgb (13.0-17.0) g/dL Hct (38.0-50.0) % MCV (80.0-98.0) fL MCH (27.0-32.0) pg MCHC (31.0-37.0) g/dL RDW Std Deviation (28.0-62.0) fl RDW Coeff of Pradeep (11.0-15.0) % Plt Count (150-400) K/uL MPV (7.40-12.00) fL Neut % (Auto) (48.0-80.0) % Lymph % (Auto) (16.0-40.0) % [place] % (Auto) (0.0-15.0) % Eos % (Auto) (0.0-7.0) % Baso % (Auto) (0.0-1.5) % Neut # (Auto) (1.4-5.7) K/uL Lymph # (Auto) (0.6-2.4) K/uL [place] # (Auto) (0.0-0.8) K/uL Eos # (Auto) (0.0-0.7) K/uL Baso # (Auto) (0.0-0.1) K/uL Nucleated RBC % /100WBC Nucleated RBCs # K/uL D-Dimer, Quantitative (0.0-0.50) mg/L FEU Sodium (136-148) mmol/L Potassium (3.5-5.1) mmol/L Chloride (98-107) mmol/L Carbon Dioxide (21.0-32.0) mmol/L BUN (7.0-18.0) mg/dL Creatinine (0.8-1.3) mg/dL Est Cr Clr Drug Dosing mL/min Estimated GFR (MDRD) ml/min Glucose (74-106) mg/dL Hemoglobin A1c 5.9 (4.5-6.2) % Calcium (8.5-10.1) mg/dL Phosphorus (2.6-4.7) mg/dL Magnesium (1.8-2.4) mg/dL Total Bilirubin (0.2-1.0) mg/dL AST (15-37) IU/L ALT (14-63) IU/L Alkaline Phosphatase (46-116) U/L Troponin I < 0.050 (0.000-0.056) ng/mL Total Protein (6.4-8.2) g/dL Albumin (3.4-5.0) g/dL Globulin (2.6-4.0) g/dL Albumin/Globulin Ratio (0.9-1.6) Triglycerides 80 (0-200) mg/dL Cholesterol 174 (50-200) mg/dL LDL Cholesterol, Calc 104 (60-180) mg/dL VLDL Cholesterol 16 (5-55) mg/dL HDL Cholesterol 54 (40-60) mg/dL Cholesterol/HDL Ratio 3.2 L (3.3-6.0) 09/03/19 09/03/19 09/03/19 Range/Units 16:22 16:22 16:22 WBC (4.0-11.0) K/uL RBC (4.50-5.90) M/uL Hgb (13.0-17.0) g/dL Hct (38.0-50.0) % MCV (80.0-98.0) fL MCH (27.0-32.0) pg MCHC (31.0-37.0) g/dL RDW Std Deviation (28.0-62.0) fl RDW Coeff of Pradeep (11.0-15.0) % Plt Count (150-400) K/uL MPV (7.40-12.00) fL Neut % (Auto) (48.0-80.0) % Lymph % (Auto) (16.0-40.0) % [place] % (Auto) (0.0-15.0) % Eos % (Auto) (0.0-7.0) % Baso % (Auto) (0.0-1.5) % Neut # (Auto) (1.4-5.7) K/uL Lymph # (Auto) (0.6-2.4) K/uL [place] # (Auto) (0.0-0.8) K/uL Eos # (Auto) (0.0-0.7) K/uL Baso # (Auto) (0.0-0.1) K/uL Nucleated RBC % /100WBC Nucleated RBCs # K/uL D-Dimer, Quantitative (0.0-0.50) mg/L FEU Sodium (136-148) mmol/L Potassium (3.5-5.1) mmol/L Chloride (98-107) mmol/L Carbon Dioxide (21.0-32.0) mmol/L BUN (7.0-18.0) mg/dL Creatinine (0.8-1.3) mg/dL Est Cr Clr Drug Dosing mL/min Estimated GFR (MDRD) ml/min Glucose (74-106) mg/dL Hemoglobin A1c (4.5-6.2) % Calcium (8.5-10.1) mg/dL Phosphorus 2.7 (2.6-4.7) mg/dL Magnesium 2.2 (1.8-2.4) mg/dL Total Bilirubin (0.2-1.0) mg/dL AST (15-37) IU/L ALT (14-63) IU/L Alkaline Phosphatase (46-116) U/L Troponin I < 0.050 (0.000-0.056) ng/mL Total Protein (6.4-8.2) g/dL Albumin (3.4-5.0) g/dL Globulin (2.6-4.0) g/dL Albumin/Globulin Ratio (0.9-1.6) Triglycerides (0-200) mg/dL Cholesterol (50-200) mg/dL LDL Cholesterol, Calc (60-180) mg/dL VLDL Cholesterol (5-55) mg/dL HDL Cholesterol (40-60) mg/dL Cholesterol/HDL Ratio (3.3-6.0) Med Orders - Current: Current Medications Acetaminophen (Tylenol) 650 mg PO Q4H PRN PRN Reason: Pain (mild 1-3) Last Admin: 09/03/19 22:29 Dose: 650 mg Amlodipine Besylate (Norvasc) 10 mg PO DAILY [facility] Last Admin: 09/04/19 09:21 Dose: 10 mg Aspirin (Aspirin) 81 mg PO DAILY [facility] Last Admin: 09/04/19 09:22 Dose: 81 mg Atorvastatin Calcium (Lipitor) 10 mg PO DAILY [facility] Last Admin: 09/04/19 09:20 Dose: 10 mg Hydrochlorothiazide (Hydrochlorothiazide) 25 mg PO DAILY [facility] Last Admin: 09/04/19 09:20 Dose: 25 mg Metoprolol Succinate (Toprol Xl) 50 mg PO DAILY [facility] Last Admin: 09/04/19 09:21 Dose: 50 mg Morphine Sulfate (Morphine) 2 mg IVPUSH Q4H PRN PRN Reason: Pain (severe 7-10) Stop: 09/04/19 12:28 Ondansetron HCl (Zofran) 4 mg IVPUSH Q4H PRN PRN Reason: Nausea Sodium Chloride (Saline Flush) 2.5 ml FLUSH ASDIRECTED PRN PRN Reason: Keep Vein Open Discontinued Medications Amlodipine Besylate (Norvasc) 5 mg PO DAILY [facility] Last Admin: 09/03/19 13:05 Dose: 5 mg Amlodipine Besylate (Norvasc) 5 mg PO ONETIME ONE Stop: 09/03/19 21:39 Last Admin: 09/03/19 22:28 Dose: 5 mg Aspirin (Aspirin) 324 mg PO ONETIME ONE Stop: 09/03/19 10:15 Last Admin: 09/03/19 10:44 Dose: 324 mg Calcium Carbonate/Glycine (Tums) 1,000 mg PO ONETIME ONE Stop: 09/03/19 23:02 Last Admin: 09/03/19 23:26 Dose: 1,000 mg Ketorolac Tromethamine (Toradol) 15 mg IVPUSH ONETIME ONE Stop: 09/03/19 22:59 Last Admin: 09/03/19 23:26 Dose: 15 mg - Exam General: Reports: Alert, Oriented Lungs: Reports: Clear to Auscultation, Normal Respiratory Effort Cardiovascular: Reports: Regular Rate, Regular Rhythm, Murmurs Psy/Mental Status: Reports: Alert, Normal Affect, Normal Mood
[2019-09-04 12:08] VITALS: BP 150/80; PULSE 74
== END 2019-09-04 12:24 | disposition home or self-care (01) ==
LOC: MW.ED 09:23 → MW.MS 11:32
PROVIDERS: ADMIT Student in an Organized Health Care Education/Training Program; ATTEND Student in an Organized Health Care Education/Training Program
DX: R07.89 Other chest pain (principal); I10 Essential (primary) hypertension; E78.5 Hyperlipidemia, unspecified; E78.00 Pure hypercholesterolemia, unspecified; R01.1 Cardiac murmur, unspecified; M19.90 Unspecified osteoarthritis, unspecified site; E66.9 Obesity, unspecified; Z68.36 Body mass index [BMI] 36.0-36.9, adult; Z79.899 Other long term (current) drug therapy
CPT/HCPCS: 36415; 71045; 80053; 80061; 83036; 83735; 84100; 84484; 85025; 85379; 93005; 93306; 96374; 99285; A9270; G0378; J1885

== ENCOUNTER 2020-07-26 11:54 | Emergency (ER) | payer OTHER, MEDICARE, BC ==
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
[2020-07-26 13:47] VITALS: BP 142/89; PULSE 74
== END 2020-07-26 13:45 | disposition home or self-care (01) ==
LOC: MW.ED 11:54
DX: S16.1XXA Strain of muscle, fascia and tendon at neck level, initial encounter (principal); E78.00 Pure hypercholesterolemia, unspecified; I10 Essential (primary) hypertension; M19.90 Unspecified osteoarthritis, unspecified site; E66.9 Obesity, unspecified; Z68.35 Body mass index [BMI] 35.0-35.9, adult; Z79.82 Long term (current) use of aspirin; Z79.899 Other long term (current) drug therapy; V59.40XA Driver of pick-up truck or van injured in collision with unspecified motor vehicles in traffic accident, initial encounter
CPT/HCPCS: 70450; 72125; 99284; U0002; 99283